=== PATIENT | male | born 1975 | race Caucasian/White ===

== ENCOUNTER 2023-01-28 19:23 | Emergency (ER) | payer BC ==
[~2023-01-28] VITALS: Ht 167.6 cm; Wt 86.0 kg
[2023-01-28] MEDS ORDERED: COZAAR100 MG (20:06)
[2023-01-28] MEDS ORDERED: CYCLOBENZAPRINE10 MG PO (20:37)
[2023-01-28 21:15] VITALS: BP 142/99
--- OUTSIDE RECORDS SUMMARY | 2023-01-28 21:49 | XMS ---
PreManage Notification: MAYANK CASAS Security [employer] Guide Events No recent Security Events currently on file CRITERIA MET - [facility] CARE PROVIDERS There are no care providers on record at this time. Carlos has no Care Guidelines for this patient. Tre VISIT COUNT (12 MO.) 2 [facility] TOTAL 3 NOTE: Visits indicate total known visits. ED/C VISIT TRACKING (12 MO.) 01/28/2023 19:25 [facility] [place] TYPE: Emergency COMPLAINT: - HEART ISSUE 10/06/2022 14:30 [facility] TYPE: Emergency COMPLAINT: - K80.50 DIAGNOSES: - Calculus of bile duct without cholangitis or cholecystitis without obstruction - Calculus of gallbladder without cholecystitis without obstruction 05/31/2022 00:32 [facility] TYPE: Emergency COMPLAINT: - R10.9 DIAGNOSES: - Unspecified abdominal pain INPATIENT VISIT TRACKING (12 MO.) No inpatient visits to display in this time frame [email or web address]
--- NOTE | 2023-01-29 19:53 | EKG ---
[facility] [address] [facility] [place] [address] Signed Normal sinus rhythm Normal ECG No previous ECGs available Confirmed by Jesica Lagos MD () on 01/29/2023 7:53:07 PM Electronically Signed By: JESICA LAGOS MD 01/29/231952 PATIENT NAME: DANIKA CASASSUHAIL RUELAS Electrocardiogram DATE OF : 75 PHYSICIAN: JESICA LAGOS MD REPORT #: [id number] REPORT IS CONFIDENTIAL AND NOT TO BE RELEASED WITHOUT AUTHORIZATION
== END 2023-01-28 21:17 | disposition home or self-care (01) ==
LOC: ED 19:23
DX: R07.89 Other chest pain (principal); I10 Essential (primary) hypertension; Z88.0 Allergy status to penicillin; Z91.018 Allergy to other foods; Z79.899 Other long term (current) drug therapy
CPT/HCPCS: 36415; 71045; 80053; 83735; 83880; 84484; 85025; 85379; 85610; 93005; 93010; 99285-25; A9270